=== PATIENT | male | born 1990 | race Native Hawaiian/Other Pacific Islander ===

== ENCOUNTER 2023-06-22 19:18 | Emergency (ER) | payer OTHER ==
--- NOTE | 2023-06-22 20:35 | XRAY Report ---
PROCEDURE: Knee 4 View RT INDICATIONS: Trauma TECHNIQUE: 4 views of the knee(s) were acquired. COMPARISON: None. FINDINGS: Bones: No visualized fracture. Prominent lateral patellar subluxation. No suspicious bony lesions. Soft tissues: Large knee joint effusion. No suspicious soft tissue calcifications or masses. IMPRESSION: Large effusion. No visualized acute fracture or dislocation. However, occult injury cannot be exclude d. Recommend short interval imaging follow-up in 7-10 days as clinically indicated for additional richie luation. Reviewed by: Yamini Rivas MD on 06/22/2023 8:33 PM PST Approved by: Yamini Rivas MD on 06/22/2023 8:33 PM PST Station ID: [id number]
[2023-06-22] MEDS ORDERED: LIDOCAINE 1% 2 ML VIAL SUBQ STA (21:33)
[2023-06-22] MEDS ORDERED: KETOROLAC 30 MG/ML VIAL IM STA (22:20)
--- NOTE | 2023-06-22 22:45 | ED Physician Documentation ---
PD HPI LOWER EXT INJURY - Stated complaint Stated Complaint: RT KNEE PX - Chief complaint Chief Complaint: Ext Problem - History obtained from History obtained from: Patient, Family - History of Present Illness PD HPI LOW EXT INJURY LOCATION: Right, Knee Type of injury: Other (over working at the [employer]) Where injury occurred: Other ([employer]) Timing - onset: How many days ago (3) Timing - duration: Days (3) Timing - details: Gradual onset, Still present Improved by: Rest Worsened by: Moving, Palpating Associated symptoms: Swelling. No: Weakness, Numbness Contributing factors: No: Anticoagulated Similar symptoms before: Has not had sx before Recently seen: Not recently seen - Additional information Additional information: Tomas Viveros is a 33-year-old male with a history of gout who presents to the emergency department with swelling and pain to the right knee. He has severe pain with any weightbearing and is only able to walk with a cane or crutches. He states that 3 days ago he was in the gym doing a workout more aggressively than he normally does with his knee and when he arrived home he had some pain to the muscles around his knee. He has had increase in the pain day by day and now he is not able to bear weight without severe pain. He has not had a fever. Review of Systems Constitutional: denies: Fever Ears: denies: Ear pain Nose: denies: Congestion Throat: denies: Sore throat Cardiac: denies: Chest pain / pressure Respiratory: denies: Cough GI: denies: Vomiting, Diarrhea Skin: denies: Rash Musculoskeletal: reports: Joint pain, Joint swelling, Pain with weight bearing. denies: Neck pain, Back pain Neurologic: denies: Generalized weakness, Focal weakness, Numbness PD PAST MEDICAL HISTORY - Past Medical History Past Medical History: No Cardiovascular: None Respiratory: None Neuro: None Endocrine/Autoimmune: None GI: None : None HEENT: None Psych: None Musculoskeletal: None Derm: None - Past Surgical History Past Surgical History: Yes General: Other Ortho: Other - Present Medications Home Medications: Ambulatory Orders Medication Instructions Recorded Confirmed Amox/Clav 875/125 [Augmentin] 1 each PO Q12H #10 tablet 01/20/23 HYDROcod/ACETAM 5/325 [[place] 5/325] 1 - 2 tablet PO Q6H PRN #14 tablet 06/23/23 - Allergies Allergies/Adverse Reactions: Allergies Allergy/AdvReac Type Severity Reaction Status Date / Time No Known Drug Allergies Allergy Verified 06/22/23 19:20 - Social History Does the pt smoke?: No Smoking Status: Never smoker Does the pt drink ETOH?: Yes Does the pt have substance abuse?: No - Immunizations Immunizations are current?: Yes - POLST Patient has POLST: No PD ED PE NORMAL - Vitals Vital signs reviewed: Yes (hypestensive ) - General General: Alert and oriented X 3, No acute distress, Well developed/nourished - HEENT HEENT: Atraumatic, PERRL, EOMI - Respiratory Respiratory: No respiratory distress - Derm Derm: Normal color, Warm and dry, No rash - Extremities Extremities: No deformity, Other (There is an obvious joint effusion to the right knee there is pain with flexion extension and testing of the ligaments which do appear stable. 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, No motor deficit, No sensory deficit, Normal speech Eye Opening: Spontaneous Motor: Obeys Commands Verbal: Oriented GCS Score: 15 - Psych Psych: Normal mood, Normal affect Results - Vitals Vitals: Vital Signs - 24 hr 06/22/23 06/22/23 06/22/23 19:20 21:13 23:35 Temperature 36.7 C 37.5 C 36.7 C Heart Rate 96 101 H 80 Respiratory 16 20 16 Rate Blood Pressure 150/90 H 171/104 H 154/80 H O2 Saturation 99 97 97 06/23/23 00:57 Temperature Heart Rate 76 Respiratory 12 Rate Blood Pressure 110/86 H O2 Saturation 96 Oxygen O2 Source Room air - Labs Labs: Microbiology 06/22/23 22:50 Body Fluid Culture - Preliminary Synovial Fluid Laboratory Tests 06/22/23 06/22/23 06/23/23 22:44 22:44 00:50 WBC 10.9 H RBC 4.89 Hgb 13.5 L Hct 40.2 L MCV 82.2 MCH 27.6 MCHC 33.6 RDW 11.7 L Plt Count 269 MPV 9.2 Neut # (Auto) 7.0 H Lymph # (Auto) 2.7 Sharp # (Auto) 0.9 Eos # (Auto) 0.1 Baso # (Auto) 0.1 Absolute Nucleated RBC 0.00 Nucleated RBC % 0.0 ESR Sodium Potassium Chloride Carbon Dioxide Anion Gap BUN Creatinine Estimated GFR (MDRD) Glucose Calcium Total Bilirubin AST ALT Alkaline Phosphatase C-Reactive Protein Total Protein Albumin Globulin Albumin/Globulin Ratio Lipase Fluid Source KNEE Fluid Color YELLOW Fluid Clarity HAZY Fluid WBC 29089 Fluid RBC < 3000 Fluid Neutrophils % 96 Fluid Lymphocytes % 4 Fluid Monocytes % 0 Fluid Eosinophils % 0 Fld Mesothelial Cell % 0 Fluid Crystals NONE SEEN 06/23/23 06/23/23 00:50 00:50 WBC RBC Hgb Hct MCV MCH MCHC RDW Plt Count MPV Neut # (Auto) Lymph # (Auto) Sharp # (Auto) Eos # (Auto) Baso # (Auto) Absolute Nucleated RBC Nucleated RBC % ESR 38 H Sodium 137 Potassium 3.5 Chloride 101 Carbon Dioxide 26 Anion Gap 10.0 BUN 10 Creatinine 1.0 Estimated GFR (MDRD) 87 L Glucose 94 Calcium 9.2 Total Bilirubin 0.7 AST 19 ALT 35 Alkaline Phosphatase 56 C-Reactive Protein 10.8 H Total Protein 7.3 Albumin 4.2 Globulin 3.1 Albumin/Globulin Ratio 1.4 Lipase 32 Fluid Source Fluid Color Fluid Clarity Fluid WBC Fluid RBC Fluid Neutrophils % Fluid Lymphocytes % Fluid Monocytes % Fluid Eosinophils % Fld Mesothelial Cell % Fluid Crystals Procedures - Arthrocentesis Joint: Knee Preparation: Sterile prep and drape Anesthesia: Lidocaine 1% Fluid: Sent for cell count, Cloudy, Sent for crystals, Sent for culture, Fluid obtained - cc (120), Sent for gram stain Aftercare: Dressing applied, No complications, Patient tolerated well PD Medical Decision Making - ED course Complexity details: reviewed results, re-evaluated patient, considered differential, d/w patient, d/w family Reviewed Lab Results: We reviewed a complete blood count which showed a white blood cell count elevated at 10.9 hemoglobin and hematocrit were 13.5 and 40.2 we have no comparisons for the patient previously platelets are normal at 269,000 and the sedimentation rate was elevated at 38 C-reactive protein elevated at 10.8 e lectrolytes kidney and liver function normal. The synovial fluid evaluated under the microscope shows 31,800 white blood cells and less than 3000 red blood cells 96% neutrophils 4% lymphocytes no crystals are seen. Gram stain shows multiple white blood cells and no organisms. I interpreted these laboratory studies to indicate an inflammatory reaction causing the joint effusion. These laboratories support a diagnosis of the inflammation versus infection based on the number of white blood cells in the absence of organisms. ED course: 33-year-old Tomas Viveros presented to the emergency department with acute right knee pain of 3 days duration after excessive use. He had a significant joint effusion seen even on plain film and easily palpable. I was able to drain 110 mL of cloudy synovial fluid with some relief of pain for the patient. The analysis of blood fluid synovial fluid demonstrated significant white blood cells with no organisms. Inflammatory markers were elevated. The patient is afebrile. [facility]. I will treat the patient with a dose of dexamethasone and provide some pain medication and a follow-up. A culture is pending. I have indicated to the patient that if he has worsening of his pain or develops fever, to present himself to an emergency department with orthopedic surgeon available. We will not have capability until 07/01. Departure - Departure Disposition: 01 Home, Self Care Clinical Impression: Bursitis Qualifiers: Bursitis location: knee Knee bursitis location: other knee bursa Laterality: left Qualified Code(s): M70.52 - Other bursitis of knee, left knee Condition: Stable Instructions: ED Bursitis Follow-Up: [facility] [Provider Group] Prescriptions: HYDROcod/ACETAM 5/325 [[place] 5/325] 1 - 2 tablet PO Q6H PRN #14 tablet PRN Reason: Pain Comments: Tomas, today it looks like the swelling you have in your knee is from overuse and the inflammation resulting from that. Today we have given you a dose of dexamethasone which should help with the inflammation and we have drawn off of 110 mL of inflamed fluid from your knee. We did not find any evidence of organisms in this specimen. There is still a concern for the potential of infection and my recommendation is that if you develop a fever or have worsening pain to follow-up urgently at an emergency department with the capability of providing orthopedic care. We will not have an orthopedic surgeon here at this hospital until 07/01/2023. I have E scribed some pain medication for your use to the [facility] in [place]. Forms: PCP List
[2023-06-22 23:29] LABS: CC,BF RBC < 3000 /mm^3; CC,BF WBC 31800 /mm^3
[2023-06-22 23:30] LABS: BF CLARITY HAZY; BF COLOR YELLOW; BF SOURCE KNEE
[2023-06-23 00:02] LABS: EOSINOPHILS %,BODY FLUID 0 %; LYMPHOCYTES %,BODY FLUID 4 %; MESOTHELIAL %, BF 0 %; MONOCYTES %,BODY FLUID 0 %; NEUTROPHILS %, BF 96 %
[2023-06-23 01:03] LABS: BASOPHILS # (AUTO) 0.1 10^3/uL (0.0-0.1); BASOPHILS % (AUTO) 0.6 %; EOSINOPHILS # (AUTO) 0.1 10^3/uL (0.0-0.7); EOSINOPHILS % (AUTO) 1.3 %; HCT - HEMATOCRIT 40.2 % (42.0-52.0); HGB - HEMOGLOBIN 13.5 g/dL (14.0-18.0); LYMPHOCYTES # (AUTO) 2.7 10^3/uL (1.5-3.5); LYMPHOCYTES % (AUTO) 24.5 %; MEAN CORPUSCULAR HEMOGLOBIN 27.6 pg (27.0-31.0); MEAN CORPUSCULAR HGB CONC 33.6 g/dL (32.0-36.0); MEAN CORPUSCULAR VOLUME 82.2 fL (80.0-94.0); MEAN PLATELET VOLUME 9.2 fL (7.4-11.4); MONOCYTES # (AUTO) 0.9 10^3/uL (0.0-1.0); MONOCYTES % (AUTO) 8.4 %; NEUTROPHILS % (AUTO) 64.5 %; PLT - PLATELET COUNT 269 10^3/uL (130-450); RED BLOOD COUNT 4.89 10^6/uL (4.70-6.10); RED CELL DISTRIBUTION WIDTH 11.7 % (12.0-15.0); WHITE BLOOD COUNT 10.9 x10^3/uL (4.8-10.8)
[2023-06-23 01:25] LABS: ALBUMIN 4.2 g/dL (3.2-5.5); ALBUMIN/GLOBULIN RATIO 1.4 (1.0-2.2); BILIRUBIN,TOTAL 0.7 mg/dL (0.2-1.0); CALCIUM 9.2 mg/dL (8.5-10.3); CRP - C-REACTIVE PROTEIN 10.8 mg/dL (<0.5); POTASSIUM 3.5 mmol/L (3.5-4.5); TOTAL PROTEIN 7.3 g/dL (6.4-8.9)
[2023-06-23] MEDS ORDERED: DEXAMETHASONE 10 MG/ML VIAL PO STA (02:48)
[2023-06-23] MEDS ORDERED: CHERRY SYRUP 10 ML UDC PO ONE (02:48)
[2023-06-23 03:23] VITALS: BP 140/89; O2SAT 97
== END 2023-06-23 03:14 | disposition home or self-care (01) ==
LOC: ED 19:18
DX: M70.51 Other bursitis of knee, right knee (principal)
CPT/HCPCS: 20610; 36415; 73564; 80053; 83690; 85025; 85651; 86140; 87040; 87070; 87205; 89051; 89060; 96372; 99284; A9270

== ENCOUNTER 2023-10-20 09:23 | Emergency (ER) | payer OTHER ==
--- NOTE | 2023-10-20 10:02 | XRAY Report ---
REVISED: THIS REPORT WAS ORIGINALLY SIGNED ON 10/20/2023 @ 10:01 AM. LATERALITY REVISED ON 11/15/2023. PROCEDURE: Ankle 3+V LT INDICATIONS: Trauma TECHNIQUE: 3 views of the ankle were acquired. COMPARISON: None. FINDINGS: Bones: No fractures or dislocations. Ankle mortise is normally aligned. No suspicious bony lesions. Soft tissues: No tibiotalar joint effusion. Achilles tendon appears normal. IMPRESSION: No acute bony abnormality. If there remains a high clinical concern for fracture, consider cross-sectional imaging now. If pain persists, consider repeat x-ray in 10-14 days or cross-sectional imaging. Reviewed by: Montserrat Gibson MD on 10/20/2023 10:01 AM PDT Approved by: Montserrat Gibson MD on 10/20/2023 10:01 AM PDT Station ID: [id number]
--- NOTE | 2023-10-20 10:25 | ED Physician Documentation ---
PD HPI LOWER EXT INJURY - Stated complaint Stated Complaint: LT FOOT INJ - Chief complaint Chief Complaint: Trauma Ext - History obtained from History obtained from: Patient - Additional information Additional information: Patient is a 33-year-old male presenting for evaluation of left ankle injury that occurred on Thursday. Patient states he twisted his ankle while walking on a step. He did not fall. No head injury. He has been using rest, ice, compression and elevation and was hoping it would get better but it is still hurting today. Denies prior injuries to the ankle. Review of Systems Musculoskeletal: reports: Extremity pain Neurologic: denies: Head injury PD PAST MEDICAL HISTORY - Past Medical History Cardiovascular: None Respiratory: None Neuro: None Endocrine/Autoimmune: None GI: None : None HEENT: None Psych: None Musculoskeletal: None Derm: None - Past Surgical History Past Surgical History: Yes General: Other Ortho: Other - Present Medications Home Medications: Ambulatory Orders Medication Instructions Recorded Confirmed Acetaminophen [Tylenol] 1 tab PO PRN PRN 10/20/23 10/20/23 Ibuprofen [Motrin] 1 tab PO DAILY 10/20/23 10/20/23 - Allergies Allergies/Adverse Reactions: Allergies Allergy/AdvReac Type Severity Reaction Status Date / Time No Known Drug Allergies Allergy Verified 10/20/23 09:37 - Social History Does the pt smoke?: No Smoking Status: Never smoker Does the pt drink ETOH?: Yes Does the pt have substance abuse?: No - Immunizations Immunizations are current?: Yes - POLST Patient has POLST: No PD ED PE NORMAL - General General: Alert and oriented X 3, No acute distress, Well developed/nourished - HEENT HEENT: Atraumatic - Cardiac Cardiac: Strong equal pulses - Respiratory Respiratory: No respiratory distress - Extremities Extremities: Other (Mild tenderness to lateral left ankle, no significant swelling, distal pulses intact, no normal motor and sensation, no significant pain with plantarflexion, mild pain with dorsiflexion) Results - Vitals Vitals: Vital Signs - 24 hr 10/20/23 10/20/23 09:29 10:54 Temperature 36.8 C Heart Rate 73 72 Respiratory 16 Rate Blood Pressure 159/87 H 132/80 H O2 Saturation 98 100 Oxygen O2 Source Room air PD Medical Decision Making - ED course Complexity details: reviewed results, d/w patient ED course: Patient with left ankle injury after rolling it on a stair few days ago. Neurovascularly intact with no significant swelling on exam. X-ray was obtained of the left ankle which I reviewed I see no fracture or dislocation. Suspect sprain. Placed into Aircast and patient already has crutches. Counseled on continued supportive care as well as need for follow-up at [facility] if symptoms persist. Departure - Departure Disposition: 01 Home, Self Care Clinical Impression: Left ankle sprain Condition: Stable Instructions: ED Sprain Ankle Comments: Your x-ray does not show a fracture or dislocation. You likely have an ankle sprain and we have placed you into an Aircast and would recommend you continue using the crutches. Continue with anti-inflammatory such as acetaminophen or ibuprofen, ice, elevation and have close follow-up with your primary care doctor if your symptoms or not improving over the next week. Forms: PCP List Discharge Date/Time: 10/20/23 10:42
[2023-10-20 10:57] VITALS: BP 132/80; O2SAT 100
== END 2023-10-20 10:42 | disposition home or self-care (01) ==
LOC: ED 09:23
DX: S93.402A Sprain of unspecified ligament of left ankle, initial encounter (principal); X50.1XXA Overexertion from prolonged static or awkward postures, initial encounter
CPT/HCPCS: 99283

== ENCOUNTER 2024-01-10 17:47 | Emergency (ER) | payer OTHER ==
--- NOTE | 2024-01-10 20:56 | ED Physician Documentation ---
History of Present Illness - Stated complaint Stated Complaint: BACK PX - Chief complaint Chief Complaint: Back Pain - History obtained from History obtained from: Patient - Additonal information Additional information: The patient comes to the emergency department chief complaint of left mid back painFor the last few days. 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 He states that additionally, his family is camping nearby and so he has been going to the [facility] to sleep at night. He states that his causing him to feel very stiff in the morning and he feels as though that has made his back worse. He has been taking ibuprofen and Tylenol for several doses and states that has helped mildly but that today, he was so stiff that he really could not turn his torso very well. He states he also felt a little numbness in his left fourth and fifth fingers when he woke up this morning. The patient states the numbness has worn off and patient states his pain is just inferior to his scapula on the left. He has tried putting a lidocaine patch on which has also only helped mildly. PD PAST MEDICAL HISTORY - Past Medical History Cardiovascular: None Respiratory: None Neuro: None Endocrine/Autoimmune: None GI: None : None HEENT: None Psych: None Musculoskeletal: None Derm: None - Past Surgical History Past Surgical History: Yes General: Other Ortho: Other - Present Medications Home Medications: Ambulatory Orders Medication Instructions Recorded Confirmed Acetaminophen [Tylenol] 1 tab PO PRN PRN 10/20/23 10/20/23 Ibuprofen [Motrin] 1 tab PO DAILY 10/20/23 10/20/23 Cyclobenzaprine [Flexeril] 10 mg PO TID PRN #20 tablet 01/10/24 HYDROcod/ACETAM 5/325 [Ethel 5/325] 1 - 2 tablet PO Q6H PRN #10 tablet 01/10/24 - Allergies Allergies/Adverse Reactions: Allergies Allergy/AdvReac Type Severity Reaction Status Date / Time No Known Drug Allergies Allergy Verified 01/10/24 18:18 - Social History Does the pt smoke?: No Smoking Status: Never smoker Does the pt drink ETOH?: Yes Does the pt have substance abuse?: No - Immunizations Immunizations are current?: Yes - POLST Patient has POLST: No PD ED PE NORMAL - Vitals Vital signs reviewed: Yes - General General: Alert and oriented X 3, No acute distress, Well developed/nourished - HEENT HEENT: Atraumatic, EOMI, Moist mucous membranes - Neck Neck: Supple, no meningeal sign, No bony TTP - Cardiac Cardiac: Strong equal pulses - Respiratory Respiratory: No respiratory distress - Back Back: No spinal TTP - Derm Derm: Normal color, Warm and dry, No rash - Extremities Extremities: No deformity, No edema - Neuro Neuro: Alert and oriented X 3, 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 He was also given prepacks of 4 hydrocodone and Flexeril. The patient did not have any worrisome signs associated with his back pain and I discussed with him that the numbness of his fingers would be coming from the neck or shoulder most likely if not directly from the hand itself. This would not be related to his back pain. We have discussed symptomatic management at home and the usual indications for return. Departure - Departure Disposition: 01 Home, Self Care Clinical Impression: Muscle strain of upper back Condition: Stable Instructions: ED Spasm Back No Trauma Prescriptions: Cyclobenzaprine [Flexeril] 10 mg PO TID PRN #20 tablet PRN Reason: Spasms HYDROcod/ACETAM 5/325 [Ethel 5/325] 1 - 2 tablet PO Q6H PRN #10 tablet PRN Reason: Pain Comments: You have a muscle spasm in your back most likely from muscle strain. You have been treated with an anti-inflammatory and steroid here and have been given a couple of prepacks to take home. Prescriptions for pain medication and muscle relaxer have been electronically transmitted to the [facility] pharmacy in [place]. You may also use ice, heat, massage, and stretching to help with the pain. Please follow-up with your primary doctor for further concerns. Forms: Activity restrictions
[2024-01-10] MEDS: HYDROcod/ACET 5/325 Prepack 4 PO STA (21:06)
[2024-01-10] MEDS: CYCLOBENZAPRINE 10 MG Prepack 2 PO PRN (21:06)
[2024-01-10] MEDS: KETOROLAC 60 MG/2 ML VIAL IM STA (21:06)
[2024-01-10] MEDS: DEXAMETHASONE 10 MG/ML VIAL IM STA (21:06)
[2024-01-10 21:17] VITALS: BP 161/103; O2SAT 94
== END 2024-01-10 21:16 | disposition home or self-care (01) ==
LOC: ED 17:47
DX: S29.012A Strain of muscle and tendon of back wall of thorax, initial encounter (principal); X50.1XXA Overexertion from prolonged static or awkward postures, initial encounter
CPT/HCPCS: 96372; 99283